=== PATIENT | male | born 1995 | race Caucasian/White ===

== ENCOUNTER 2019-08-02 19:29 | Inpatient (IN) | payer MEDICAID ==
[~2019-08-02] VITALS: Ht 172.7 cm; Wt 50.6 kg
[~2019-08-02 19:29] MED LIST: INSLISPI SC; INSUINJ37 SUBCUT
[2019-08-02] MEDS ORDERED: ONDANSETRON HCL 4 MG/2 ML VIAL IV ONE (20:00)
[2019-08-02] MEDS ORDERED: SODIUM CHLORIDE 0.9% 1,000 ML IV ONE ×3 (20:00→22:15)
[2019-08-02] MEDS ORDERED: MORPHINE SULFATE 4 MG/ML SYR/VIAL IV ONE (20:00)
[2019-08-02 20:05] LABS: Basophils # (auto) 0 10 ^3/uL (0-0.2); Basophils % (auto) 0.4 % (0.0-2.0); Eosinophils # (auto) 0 10 ^3/uL (0-0.8); Eosinophils % (auto) 0.1 % (0.0-7.0); Hemoglobin 16.8 g/dL (13.5-17.5); Lymphocytes # (auto) 1.6 10 ^3/uL (0.4-5.4); Lymphocytes % (auto) 16.2 % (10.0-50.0); Mean Corpuscular Hemoglobin 29.9 pg (28.0-32.0); Mean Corpuscular Volume 85.5 fL (80.0-100.0); Monocytes # (auto) 0.9 10 ^3/uL (0-1.3); Monocytes % (auto) 9.7 % (0.0-12.0); Neutrophils # (auto) 7.1 10 ^3/uL (1.6-8.6); Neutrophils % (auto) 73.6 % (37.0-80.0); Nucleated Red Blood Cells % 0.1 %; Platelet Count (auto) 401 10^3/uL (140-450); Red Blood Cells 5.61 10^6/uL (4.5-5.90); Red Cell Distribution Width 13.4 % (11.8-14.3); White Blood Cell 9.6 10^3/uL (4.4-10.8)
[2019-08-02 20:18] LABS: Albumin 4.7 g/dL (3.4-5.0); Calcium 9.4 mg/dL (8.5-10.1); Potassium 3.8 mmol/L (3.5-5.1)
[2019-08-02 20:27] LABS: BUN/Creatinine Ratio 9.9; Bilirubin, Total 1.1 mg/dL (0.2-1.0); Total Protein 8.9 g/dL (6.4-8.2)
[2019-08-02] MEDS ORDERED: PROMETHAZINE HCL 25 MG/ML 1ML IV ONE (21:15)
[2019-08-02] MEDS ORDERED: InsuLIN REG 1unit/0.01ml Soln (100units/ml) IV ONE (21:15)
[2019-08-02] MEDS ORDERED: DEXTROSE (50%) 50ML SYRG IV PRN (21:45)
[2019-08-02] MEDS ORDERED: NITROGLYCERIN 0.4 MG SL TAB SL PRN (22:15)
[2019-08-02] MEDS ORDERED: MORPHINE SULF INJ 2 MG/ML SYRINGE 1ML IV PRN (22:15)
[2019-08-02] MEDS ORDERED: PANTOPRAZOLE 40 MG/10 ML VIAL INJ IV ONE (22:15)
[2019-08-02] MEDS ORDERED: TEMAZEPAM 15 MG CAP PO PRN (22:15)
[2019-08-02] MEDS ORDERED: ACETAMINOPHEN 325 MG TAB PO PRN (22:15)
[2019-08-02 23:00] VITALS: BP 138/90
[2019-08-02] MEDS: ONDANSETRON HCL 4 MG/2 ML VIAL IV PRN (23:17)
[2019-08-03 00:30] VITALS: BP 138/90
[2019-08-03] MEDS: SODIUM CHLORIDE 0.9% 1,000 ML IV SCH ×3 (01:15→18:36)
[2019-08-03] MEDS: InsuLIN REG 1unit/0.01ml Soln (100units/ml) SC SCH ×6 (01:16→20:00)
[2019-08-03] MEDS: ACCU-CHEK COMFORT CURVE STRIP VI SCH ×6 (01:16→20:16)
[2019-08-03] MEDS: HYDROcodone-ACET 7.5/325MG TAB PO PRN ×2 (01:31→09:48)
[2019-08-03] MEDS: ONDANSETRON HCL 4 MG/2 ML VIAL IV PRN ×2 (03:35→09:48)
[2019-08-03 05:00] VITALS: BP 147/93
[2019-08-03] MEDS ORDERED: KETOROLAC TROMETH 15 mg/ml 1ML VL IV ONE (05:45)
[2019-08-03 05:57] LABS: Basophils # (auto) 0 10 ^3/uL (0-0.2); Basophils % (auto) 0.1 % (0.0-2.0); Eosinophils # (auto) 0 10 ^3/uL (0-0.8); Hemoglobin 14.3 g/dL (13.5-17.5); Lymphocytes # (auto) 1.9 10 ^3/uL (0.4-5.4); Lymphocytes % (auto) 18.6 % (10.0-50.0); Mean Corpuscular Hgb Conc. 34.1 g/dL (32.0-36.0); Monocytes # (auto) 1.1 10 ^3/uL (0-1.3); Monocytes % (auto) 10.6 % (0.0-12.0); Neutrophils % (auto) 70.7 % (37.0-80.0); Nucleated Red Blood Cells % 0.2 %; Platelet Count (auto) 354 10^3/uL (140-450); Red Blood Cells 4.95 10^6/uL (4.5-5.90); Red Cell Distribution Width 13.4 % (11.8-14.3)
[2019-08-03 06:16] LABS: BUN/Creatinine Ratio 9.7; Calcium 8.2 mg/dL (8.5-10.1); Potassium 3.2 mmol/L (3.5-5.1)
[2019-08-03] MEDS ORDERED: SODIUM CHLORIDE 0.9% 500 ML IV ONE (07:30)
[2019-08-03 09:00] VITALS: BP 143/88
[2019-08-03 09:25] LABS: Urine WBC None Seen /hpf (0 - 3)
[2019-08-03 09:40] LABS: Urine Bacteria NONE SEEN /hpf (None Seen); Urine Blood TRACE /uL (Negative); Urine Mucus FEW (None Seen); Urine Specific Gravity 1.014 (1.001-1.035); Urine Sperm PRESENT /hpf (None Seen)
[2019-08-03] MEDS: PANTOPRAZOLE 40 MG/10 ML VIAL INJ IV SCH (09:48)
[2019-08-03] MEDS ORDERED: INSULIN LANTUS (GLARGINE) 1 /0.01ml (100units/ml) SC SCH ×2 (11:15→22:00)
[2019-08-03 12:56] VITALS: BP 130/89
[2019-08-03] MEDS: MORPHINE SULF INJ 2 MG/ML SYRINGE 1ML IV PRN ×2 (13:55→20:16)
[2019-08-03] MEDS: PROMETHAZINE HCL 25 MG/ML 1ML IV PRN ×3 (13:55→22:30)
[2019-08-03 16:29] LABS: Calcium 7.7 mg/dL (8.5-10.1); Potassium 3.2 mmol/L (3.5-5.1)
[2019-08-03 16:31] LABS: BUN/Creatinine Ratio 8.8
[2019-08-03 17:00] VITALS: BP 133/77
[2019-08-03 22:00] VITALS: BP 150/85
[2019-08-04 01:04] LABS: BUN/Creatinine Ratio 7.1; Potassium 3.4 mmol/L (3.5-5.1)
[2019-08-04] MEDS: InsuLIN REG 1unit/0.01ml Soln (100units/ml) SC SCH (01:24)
[2019-08-04] MEDS: ACCU-CHEK COMFORT CURVE STRIP VI SCH ×16 (01:24→23:25)
[2019-08-04] MEDS: MORPHINE SULF INJ 2 MG/ML SYRINGE 1ML IV PRN ×4 (02:00→21:13)
[2019-08-04] MEDS ORDERED: SODIUM CHLORIDE 0.9% 2,000 ML IV ONE (03:45)
[2019-08-04] MEDS ORDERED: POTASSIUM CHL 20MEQ/100ML 100 ML IV ONE (03:45)
[2019-08-04] MEDS ORDERED: DEXTROSE (50%) 50ML SYRG IV PRN (04:15)
[2019-08-04] MEDS: InsuLIN R (HUMAN) 100 UNITS in SODIUM CHL 0.9% 99 ML IV SCH (04:24)
[2019-08-04] MEDS: PROMETHAZINE HCL 25 MG/ML 1ML IV PRN ×4 (04:35→20:29)
[2019-08-04 05:00] VITALS: BP 145/71
[2019-08-04] MEDS: SODIUM CHLORIDE 0.9% 1,000 ML IV SCH ×2 (05:38→15:13)
[2019-08-04 09:00] VITALS: BP 150/88
[2019-08-04 09:03] LABS: Basophils # (auto) 0 10 ^3/uL (0-0.2); Basophils % (auto) 0.3 % (0.0-2.0); Eosinophils # (auto) 0.1 10 ^3/uL (0-0.8); Eosinophils % (auto) 1.3 % (0.0-7.0); Hematocrit 41.3 % (41.0-53.0); Lymphocytes # (auto) 1.4 10 ^3/uL (0.4-5.4); Mean Corpuscular Hemoglobin 28.8 pg (28.0-32.0); Mean Corpuscular Volume 84.9 fL (80.0-100.0); Monocytes # (auto) 1.1 10 ^3/uL (0-1.3); Monocytes % (auto) 12.9 % (0.0-12.0); Neutrophils # (auto) 5.7 10 ^3/uL (1.6-8.6); Neutrophils % (auto) 68.5 % (37.0-80.0); Nucleated Red Blood Cells % 0.1 %; Platelet Count (auto) 333 10^3/uL (140-450); Red Blood Cells 4.87 10^6/uL (4.5-5.90); Red Cell Distribution Width 13.1 % (11.8-14.3); White Blood Cell 8.2 10^3/uL (4.4-10.8)
[2019-08-04 09:24] LABS: BUN/Creatinine Ratio 5.3; Calcium 7.4 mg/dL (8.5-10.1)
[2019-08-04] MEDS: PANTOPRAZOLE 40 MG/10 ML VIAL INJ IV SCH (10:36)
[2019-08-04] MEDS: SUCRALFATE 1 GM/10 ML ORAL SUSP PO SCH ×3 (11:30→22:00)
[2019-08-04 13:00] VITALS: BP 152/92
[2019-08-04 14:43] LABS: BUN/Creatinine Ratio 4.5; Calcium 7.6 mg/dL (8.5-10.1)
[2019-08-04 14:45] LABS: INR 1.23 (0.9-1.15); Partial Thromboplastin Time 27.1 sec (23.64-32.05)
[2019-08-04 16:40] VITALS: BP 126/81
[2019-08-04] MEDS: D5W/SOD CHLO 0.9% 1,000 ML IV SCH (17:35)
[2019-08-04 22:00] VITALS: BP 150/89
[2019-08-04] MEDS: PANTOPRAZOLE 40 MG TAB PO SCH (22:00)
[2019-08-05] VITALS (9 sets, daily range): BP systolic 128–150; BP diastolic 83–109
[2019-08-05] MEDS: ACCU-CHEK COMFORT CURVE STRIP VI SCH ×24 (00:20→23:14)
[2019-08-05 00:57] LABS: BUN/Creatinine Ratio 2.9; Calcium 7.8 mg/dL (8.5-10.1); Magnesium 1.7 mg/dL (1.6-2.6)
[2019-08-05 00:59] LABS: Potassium 2.6 mmol/L (3.5-5.1)
[2019-08-05] MEDS: PROMETHAZINE HCL 25 MG/ML 1ML IV PRN ×3 (01:45→17:58)
[2019-08-05] MEDS: SUCRALFATE 1 GM/10 ML ORAL SUSP PO SCH ×4 (01:53→22:14)
[2019-08-05] MEDS: MORPHINE SULF INJ 2 MG/ML SYRINGE 1ML IV PRN ×3 (03:40→20:42)
[2019-08-05] MEDS: D5W/SOD CHLO 0.9% 1,000 ML IV SCH ×2 (03:52→15:11)
[2019-08-05] MEDS: InsuLIN R (HUMAN) 100 UNITS in SODIUM CHL 0.9% 99 ML IV SCH ×2 (04:16→23:15)
[2019-08-05] MEDS ORDERED: POTASSIUM CHL 20MEQ/100ML 100 ML IV ONE ×2 (08:04→16:30)
[2019-08-05 09:08] LABS: Basophils # (auto) 0 10 ^3/uL (0-0.2); Basophils % (auto) 0.5 % (0.0-2.0); Eosinophils # (auto) 0.2 10 ^3/uL (0-0.8); Eosinophils % (auto) 2.5 % (0.0-7.0); Hematocrit 42.4 % (41.0-53.0); Hemoglobin 14.6 g/dL (13.5-17.5); Lymphocytes # (auto) 0.9 10 ^3/uL (0.4-5.4); Lymphocytes % (auto) 14.3 % (10.0-50.0); Mean Corpuscular Hgb Conc. 34.5 g/dL (32.0-36.0); Mean Corpuscular Volume 83.8 fL (80.0-100.0); Monocytes # (auto) 0.8 10 ^3/uL (0-1.3); Monocytes % (auto) 12.8 % (0.0-12.0); Neutrophils # (auto) 4.3 10 ^3/uL (1.6-8.6); Neutrophils % (auto) 69.9 % (37.0-80.0); Platelet Count (auto) 352 10^3/uL (140-450); Red Blood Cells 5.05 10^6/uL (4.5-5.90); Red Cell Distribution Width 13.5 % (11.8-14.3); White Blood Cell 6.2 10^3/uL (4.4-10.8)
[2019-08-05 09:22] LABS: INR 1.21 (0.9-1.15)
[2019-08-05 09:26] LABS: BUN/Creatinine Ratio 3.4; Calcium 7.8 mg/dL (8.5-10.1)
[2019-08-05 09:30] LABS: Potassium 2.7 mmol/L (3.5-5.1)
[2019-08-05] MEDS: PANTOPRAZOLE 40 MG TAB PO SCH (09:38)
[2019-08-05] MEDS: POTASSIUM CHL 20MEQ/100ML 100 ML IV SCH ×4 (10:08→15:41)
[2019-08-05] MEDS ORDERED: SODIUM CHLORIDE LOCK 10 ML ONE (13:00)
[2019-08-05] MEDS ORDERED: LIDOCAINE VISCOUS 2% 15ML UD ONE (13:00)
[2019-08-05] MEDS ORDERED: diphenhdrAMINE HCL 50 MG/1 ML VL ONE (13:01)
[2019-08-05] MEDS: fentaNYL CITRATE 100 MCG/2 ML VL ONE ×2 (13:08→13:11)
[2019-08-05] MEDS: MIDAZOLAM HCL 5 MG/ML-1ML VIAL ONE ×3 (13:08→13:13)
[2019-08-05 15:40] LABS: BUN/Creatinine Ratio 4.8; Calcium 8.1 mg/dL (8.5-10.1); Phosphorus 1.3 mg/dL (2.5-4.90)
[2019-08-05] MEDS ORDERED: POTASSIUM PHOSPHATE 22 MEQ in SODIUM CHL 0.9% 100 ML IV ONE (16:30)
[2019-08-05 18:58] LABS: Calcium 7.9 mg/dL (8.5-10.1); Phosphorus 1.5 mg/dL (2.5-4.90); Potassium 3.1 mmol/L (3.5-5.1)
[2019-08-05] MEDS: PANTOPRAZOLE 40 MG/10 ML VIAL INJ IV SCH (22:14)
[2019-08-05 22:42] LABS: BUN/Creatinine Ratio 4.4; Calcium 8.1 mg/dL (8.5-10.1); Phosphorus 1.5 mg/dL (2.5-4.90)
[2019-08-05] MEDS ORDERED: INSULIN LANTUS (GLARGINE) 1 /0.01ml (100units/ml) SC SCH (23:45)
[2019-08-06] VITALS (24 sets, daily range): BP systolic 111–187; BP diastolic 74–120
[2019-08-06] MEDS ORDERED: POTASSIUM EFFERVESENT TAB 25 MEQ GT ONE
[2019-08-06] MEDS ORDERED: DEXTROSE (50%) 50ML SYRG IV PRN
[2019-08-06] MEDS ORDERED: POTASSIUM EFFERVESENT TAB 25 MEQ PO ONE (04:00)
[2019-08-06] MEDS: ACCU-CHEK COMFORT CURVE STRIP VI SCH ×4 (04:07→11:49)
[2019-08-06 04:08] LABS: Basophils # (auto) 0 10 ^3/uL (0-0.2); Basophils % (auto) 0.5 % (0.0-2.0); Eosinophils # (auto) 0.4 10 ^3/uL (0-0.8); Eosinophils % (auto) 4.7 % (0.0-7.0); Hemoglobin 13.7 g/dL (13.5-17.5); Lymphocytes # (auto) 1.9 10 ^3/uL (0.4-5.4); Lymphocytes % (auto) 24.9 % (10.0-50.0); Mean Corpuscular Hemoglobin 28.6 pg (28.0-32.0); Mean Corpuscular Hgb Conc. 34.2 g/dL (32.0-36.0); Mean Corpuscular Volume 83.8 fL (80.0-100.0); Monocytes % (auto) 13.3 % (0.0-12.0); Neutrophils # (auto) 4.4 10 ^3/uL (1.6-8.6); Neutrophils % (auto) 56.6 % (37.0-80.0); Platelet Count (auto) 340 10^3/uL (140-450); Red Blood Cells 4.77 10^6/uL (4.5-5.90); Red Cell Distribution Width 13.5 % (11.8-14.3); White Blood Cell 7.8 10^3/uL (4.4-10.8)
[2019-08-06] MEDS: InsuLIN REG 1unit/0.01ml Soln (100units/ml) SC SCH ×4 (04:08→11:56)
[2019-08-06] MEDS: MORPHINE SULF INJ 2 MG/ML SYRINGE 1ML IV PRN (04:15)
[2019-08-06 04:22] LABS: Calcium 7.9 mg/dL (8.5-10.1); Magnesium 2.2 mg/dL (1.6-2.6); Potassium 3.2 mmol/L (3.5-5.1)
[2019-08-06 04:25] LABS: BUN/Creatinine Ratio 4.8
[2019-08-06] MEDS: SUCRALFATE 1 GM/10 ML ORAL SUSP PO SCH ×2 (06:40→11:48)
[2019-08-06] MEDS: PROMETHAZINE HCL 25 MG/ML 1ML IV PRN (09:13)
[2019-08-06] MEDS: PANTOPRAZOLE 40 MG/10 ML VIAL INJ IV SCH (10:28)
[2019-08-06] MEDS: SOD CHL 0.9%/ KCL 20MEQ 1,000 ML IV SCH ×2 (10:40)
[2019-08-06] MEDS ORDERED: POTASSIUM CHL 20 Meq TABLET PO ONE (11:15)
== END 2019-08-06 13:35 | disposition home or self-care (01) | DRG 241 ==
LOC: ER 19:29 → UNDOADMIN 19:30 → TELE-WESTW 19:30 → TELE 19:30 → ICU WEST 08-05 21:50
PROVIDERS: ADMIT Nurse Practitioner; ATTEND Hospitalist
PROC: 0DJ08ZZ Inspection of Upper Intestinal Tract, Via Natural or Artificial Opening Endoscopic (ICD-10-PCS; principal; 2019-08-05 13:08)
DX: K29.70 Gastritis, unspecified, without bleeding (principal); E10.10 Type 1 diabetes mellitus with ketoacidosis without coma; K31.84 Gastroparesis; E10.43 Type 1 diabetes mellitus with diabetic autonomic (poly)neuropathy; E87.1 Hypo-osmolality and hyponatremia; E86.0 Dehydration; E87.6 Hypokalemia; K20.9 Esophagitis, unspecified; F12.90 Cannabis use, unspecified, uncomplicated; Z79.4 Long term (current) use of insulin; Z91.19 Patient's noncompliance with other medical treatment and regimen
CPT/HCPCS: 36415; 36600; 71045; 74176; 80048; 80053; 81001; 82010; 82150; 82805; 82962; 83690; 83735; 84100; 84484; 85025; 85610; 85730; 87081; 96361; 96374; 96375; C9113; G0378; J1815; J2250; J2405; J3480; J7042

== ENCOUNTER 2019-09-16 11:06 | Emergency (ER) | payer MEDICAID ==
[~2019-09-16] VITALS: Ht 177.8 cm; Wt 56.7 kg
[2019-09-16] MEDS ORDERED: PANTOPRAZOLE 40 MG/10 ML VIAL INJ IV STA (11:21)
[2019-09-16] MEDS ORDERED: SODIUM CHLORIDE 0.9% 1,000 ML IVB ONE (11:21)
[2019-09-16] MEDS ORDERED: PROCHLORPERAZINE EDISYLATE 5 MG/ML 2ML VIAL IV ONE (11:30)
[2019-09-16] MEDS ORDERED: MORPHINE SULFATE 4 MG/ML SYR/VIAL IV ONE (11:30)
[2019-09-16 12:07] LABS: Basophils # (auto) 0 10 ^3/uL (0-0.2); Basophils % (auto) 0.4 % (0.0-2.0); Eosinophils # (auto) 0 10 ^3/uL (0-0.8); Eosinophils % (auto) 0.4 % (0.0-7.0); Hematocrit 42.3 % (41.0-53.0); Hemoglobin 14.3 g/dL (13.5-17.5); Lymphocytes # (auto) 1.3 10 ^3/uL (0.4-5.4); Lymphocytes % (auto) 19.3 % (10.0-50.0); Mean Corpuscular Hemoglobin 28.5 pg (28.0-32.0); Mean Corpuscular Hgb Conc. 33.9 g/dL (32.0-36.0); Mean Corpuscular Volume 84.1 fL (80.0-100.0); Monocytes # (auto) 0.4 10 ^3/uL (0-1.3); Monocytes % (auto) 5.9 % (0.0-12.0); Neutrophils # (auto) 4.9 10 ^3/uL (1.6-8.6); Nucleated Red Blood Cells % 0.1 %; Platelet Count (auto) 277 10^3/uL (140-450); Red Blood Cells 5.03 10^6/uL (4.5-5.90); Red Cell Distribution Width 13.4 % (11.8-14.3); White Blood Cell 6.7 10^3/uL (4.4-10.8)
[2019-09-16 12:44] LABS: Potassium 3.7 mmol/L (3.5-5.1)
[2019-09-16 12:48] LABS: BUN/Creatinine Ratio 12.9; Calcium 9.2 mg/dL (8.5-10.1)
[2019-09-16 12:50] LABS: Bilirubin, Total 0.5 mg/dL (0.2-1.0); Total Protein 7.1 g/dL (6.4-8.2)
[2019-09-16 13:16] VITALS: BP 130/95
[2019-09-16 13:30] LABS: Urine Bacteria FEW /hpf (None Seen); Urine Blood TRACE /uL (Negative); Urine WBC 1 /hpf (0 - 3)
[2019-09-16 13:44] LABS: Alcohol, Urine < 3.0 mg/dL (0-10); Amphetamine Screen, Urine NEGATIVE (NEGATIVE); Barbiturate Scree,Urine NEGATIVE (NEGATIVE); Benzodiazephine Screen, Urine NEGATIVE (NEGATIVE); Cannabinoid Screen, Urine POSITIVE (NEGATIVE); Cocaine Screen, Urine NEGATIVE (NEGATIVE); Opiate Scree,Urine POSITIVE (NEGATIVE); Phencyclidine Screen, Urine NEGATIVE (NEGATIVE)
== END 2019-09-16 14:53 | disposition home or self-care (01) ==
LOC: ER 11:06
DX: F12.188 Cannabis abuse with other cannabis-induced disorder (principal); R19.7 Diarrhea, unspecified; R10.13 Epigastric pain; E11.9 Type 2 diabetes mellitus without complications
CPT/HCPCS: 36415; 80053; 80307; 81001; 82010; 82962; 83690; 85025; 96361; 96374; 96375; 99284; C9113; J0780; J2270

== ENCOUNTER 2020-01-19 14:16 | Inpatient (IN) | payer MEDICAID ==
[~2020-01-19] VITALS: Ht 177.8 cm; Wt 60.0 kg
[2020-01-19 15:43] LABS: Basophils # (auto) 0 10 ^3/uL (0-0.2); Basophils % (auto) 0.4 % (0.0-2.0); Eosinophils # (auto) 0 10 ^3/uL (0-0.8); Eosinophils % (auto) 0.1 % (0.0-7.0); Hematocrit 38.8 % (41.0-53.0); Hemoglobin 12.7 g/dL (13.5-17.5); Lymphocytes # (auto) 0.8 10 ^3/uL (0.4-5.4); Lymphocytes % (auto) 9.8 % (10.0-50.0); Mean Corpuscular Hemoglobin 28.4 pg (28.0-32.0); Mean Corpuscular Hgb Conc. 32.6 g/dL (32.0-36.0); Mean Corpuscular Volume 86.9 fL (80.0-100.0); Monocytes # (auto) 0.5 10 ^3/uL (0-1.3); Monocytes % (auto) 6.1 % (0.0-12.0); Neutrophils # (auto) 6.7 10 ^3/uL (1.6-8.6); Neutrophils % (auto) 83.6 % (37.0-80.0); Nucleated Red Blood Cells % 0.1 %; Platelet Count (auto) 317 10^3/uL (140-450); Red Blood Cells 4.47 10^6/uL (4.5-5.90); Red Cell Distribution Width 13.8 % (11.8-14.3)
[2020-01-19 15:56] LABS: Albumin 3.9 g/dL (3.4-5.0); Calcium 8.9 mg/dL (8.5-10.1); Potassium 3.6 mmol/L (3.5-5.1)
[2020-01-19 15:59] LABS: BUN/Creatinine Ratio 18.2; Bilirubin, Total 0.5 mg/dL (0.2-1.0)
[2020-01-19 16:54] LABS: Urine Bacteria NONE SEEN /hpf (None Seen); Urine Blood Negative /uL (Negative); Urine Mucus FEW (None Seen); Urine Specific Gravity 1.017 (1.001-1.035); Urine WBC 2 /hpf (0 - 3)
[2020-01-19] MEDS ORDERED: MORPHINE SULFATE 4 MG/ML SYR/VIAL IV ONE (18:45)
[2020-01-19] MEDS ORDERED: ONDANSETRON HCL 4 MG/2 ML VIAL IV ONE ×2 (18:45→20:45)
[2020-01-19] MEDS ORDERED: SODIUM CHLORIDE 0.9% 1,000 ML IV ONE ×3 (18:45→23:00)
[2020-01-19] MEDS ORDERED: PANTOPRAZOLE 40 MG/10 ML VIAL INJ IV ONE (19:00)
[2020-01-19 19:56] LABS: Alcohol, Urine < 3.0 mg/dL (0-10); Amphetamine Screen, Urine NEGATIVE (NEGATIVE); Barbiturate Scree,Urine NEGATIVE (NEGATIVE); Benzodiazephine Screen, Urine NEGATIVE (NEGATIVE); Cannabinoid Screen, Urine POSITIVE (NEGATIVE); Cocaine Screen, Urine NEGATIVE (NEGATIVE)
[2020-01-19 20:03] LABS: Opiate Scree,Urine NEGATIVE (NEGATIVE); Phencyclidine Screen, Urine NEGATIVE (NEGATIVE)
[2020-01-19] MEDS ORDERED: PROCHLORPERAZINE EDISYLATE 5 MG/ML 2ML VIAL IV ONE (20:45)
[2020-01-19] MEDS ORDERED: IOHEXOL 300 MG/ML 100ML BOTTLE IJ ONE (20:57)
[2020-01-19 23:05] LABS: Amylase 55 U/L (25-115); Lipase 45 U/L (73-393)
[2020-01-19 23:19] LABS: INR 1.04 (0.9-1.15); Partial Thromboplastin Time 24.4 sec (23.0-31.2)
[2020-01-19] MEDS ORDERED: PROMETHAZINE HCL 25 MG/ML 1ML IV ONE (23:45)
[2020-01-20] VITALS (7 sets, daily range): BP systolic 123–150; BP diastolic 78–109
[2020-01-20] MEDS ORDERED: MORPHINE SULF INJ 2 MG/ML SYRINGE 1ML IV ONE
[2020-01-20] MEDS ORDERED: metroNIDAZOLE 500MG/100ML 100 ML IV ONE
[2020-01-20] MEDS ORDERED: CIPROFLOXACIN 400MG/200ML 200 ML IV ONE
--- NOTE | 2020-01-20 | NUR ---
Refused Carafate 1 gram liquid and tablet Protonix 40mg.,said that he cant get it down, though explained that Zofran 4mg. i.v.p, given earlier, still refused.
[2020-01-20] MEDS ORDERED: SODIUM CHLORIDE 0.9% 1,000 ML IV SCH (01:00)
[2020-01-20] MEDS ORDERED: DEXTROSE (50%) 50ML SYRG IV PRN (01:15)
[2020-01-20 01:51] LABS: Hematocrit 35.6 % (41.0-53.0); Hemoglobin 11.9 g/dL (13.5-17.5)
[2020-01-20] MEDS: InsuLIN REG 1unit/0.01ml Soln (100units/ml) SC SCH ×4 (06:00→23:59)
[2020-01-20] MEDS: ACCU-CHEK COMFORT CURVE STRIP VI SCH ×4 (06:23→23:59)
[2020-01-20] MEDS: MORPHINE SULFATE 4 MG/ML SYR/VIAL IV PRN ×3 (06:23→22:22)
[2020-01-20] MEDS ORDERED: cefTRIAXone 1GM/50ML D5W 50 ML IV SCH (09:00)
[2020-01-20] MEDS ORDERED: PANTOPRAZOLE 40 MG/10 ML VIAL INJ IV SCH (10:00)
[2020-01-20] MEDS ORDERED: LIDOCAINE VISCOUS 2% 15ML UD ONE (10:33)
[2020-01-20] MEDS ORDERED: MIDAZOLAM HCL 5 MG/ML-1ML VIAL ONE (10:33)
[2020-01-20] MEDS ORDERED: diphenhdrAMINE HCL 50 MG/1 ML VL ONE (10:34)
[2020-01-20] MEDS ORDERED: fentaNYL CITRATE 100 MCG/2 ML VL ONE (10:34)
[2020-01-20] MEDS: POLYETHYLENE GLYCOL 17 GM PWDR PO ONE ×2 (11:00→15:15)
[2020-01-20] MEDS ORDERED: ONDANSETRON HCL 4 MG/2 ML VIAL ONE (12:20)
--- NOTE | 2020-01-20 12:30 | NUR ---
Per Dr. Fe Moise, may not do the In-house COVID test since patient is already undergoing EGD and COVID ELEUTERIO is negative. Patient is for discharge today after EGD.
[2020-01-20] MEDS ORDERED: ONDA-144 PO (12:48)
[2020-01-20] MEDS ORDERED: SUCR1SUS10 PO (12:48)
[2020-01-20] MEDS ORDERED: INSLISPI SC (12:48)
[2020-01-20] MEDS ORDERED: INSUINJ37 SC (12:48)
[2020-01-20] MEDS ORDERED: PANT40T PO (12:48)
[2020-01-20 14:16] LABS: Potassium 3.2 mmol/L (3.5-5.1)
[2020-01-20 14:17] LABS: Calcium 7.9 mg/dL (8.5-10.1)
--- NOTE | 2020-01-20 14:35 | NUR ---
BMP results in, paged Dr. Hernando Moise for Na-135, K-3.2, Ca-7.9. Waiting for call back.
[2020-01-20] MEDS: POTASSIUM EFFERVESENT TAB 25 MEQ PO ONE ×2 (15:00→15:14)
--- NOTE | 2020-01-20 16:20 | NUR ---
Assessment Patient is a 24-year-old male who is alert and oriented. Patient refused to speak to social service. Per social service consult for home health safety evaluation, IE/ [facility] and for [facility] to refer patient to tertiary [facility]. Faxed clinical information to [facility]. Per Sari with [facility] [phone] patient has been accepted and service to start within 24-48hrs upon d/c day. [facility] will refer patient to [facility] if patient meets criteria. Obtain authorization from [facility] for [facility] [id number].
[2020-01-20] MEDS: ONDANSETRON HCL 4 MG/2 ML VIAL IV PRN ×2 (16:35→20:05)
--- NOTE | 2020-01-20 16:40 | NUR ---
Patient had 2 episodes of vomiting in the 2 hours, Zofran IV given, refused to take Miralax PO. Potassium as ordered by MD given. Patient is cleared for discharge but adamantly refused to go home. Paged Dr. Fe Moise and returned call, discussed with him about this. Per MD the decision is to send him home still. We will talk to the patient again together with Bear PATRICKrelief charge nurse.
[2020-01-20] MEDS: SUCRALFATE 1 GM/10 ML ORAL SUSP PO SCH ×3 (17:00→22:00)
--- NOTE | 2020-01-20 17:42 | NUR ---
Received orders from Dr. Fe Moise. D/C held for today.
[2020-01-20] MEDS: POTASSIUM CHL 20MEQ/100ML 100 ML IV SCH ×2 (18:06→22:06)
--- NOTE | 2020-01-20 18:08 | NUR ---
Accucheck-202mg/dl, Sliding scale insulin of 3 units not given, patient is vomiting unable to eat. Will continue to monitor.
[2020-01-20] MEDS: PANTOPRAZOLE 40 MG TAB PO SCH ×2 (21:50→22:00)
[2020-01-21] MEDS: ONDANSETRON HCL 4 MG/2 ML VIAL IV PRN ×3 (04:22→13:41)
[2020-01-21 05:00] VITALS: BP 140/95
[2020-01-21] MEDS: ACCU-CHEK COMFORT CURVE STRIP VI SCH ×2 (06:05→12:00)
[2020-01-21] MEDS: InsuLIN REG 1unit/0.01ml Soln (100units/ml) SC SCH ×2 (06:06→12:38)
[2020-01-21] MEDS: SUCRALFATE 1 GM/10 ML ORAL SUSP PO SCH ×2 (06:15→11:30)
--- NOTE | 2020-01-21 07:38 | NUR ---
Report given to Edison Kan, patient is resting no distress.
[2020-01-21 08:00] VITALS: BP 120/81
[2020-01-21 08:21] LABS: Basophils # (auto) 0 10 ^3/uL (0-0.2); Basophils % (auto) 0.2 % (0.0-2.0); Eosinophils # (auto) 0 10 ^3/uL (0-0.8); Eosinophils % (auto) 0.1 % (0.0-7.0); Hematocrit 40.6 % (41.0-53.0); Hemoglobin 13.7 g/dL (13.5-17.5); Lymphocytes # (auto) 1.1 10 ^3/uL (0.4-5.4); Mean Corpuscular Hemoglobin 28.5 pg (28.0-32.0); Mean Corpuscular Hgb Conc. 33.7 g/dL (32.0-36.0); Mean Corpuscular Volume 84.5 fL (80.0-100.0); Monocytes # (auto) 0.6 10 ^3/uL (0-1.3); Monocytes % (auto) 8.8 % (0.0-12.0); Neutrophils # (auto) 5.3 10 ^3/uL (1.6-8.6); Neutrophils % (auto) 74.9 % (37.0-80.0); Platelet Count (auto) 320 10^3/uL (140-450); Red Blood Cells 4.81 10^6/uL (4.5-5.90); Red Cell Distribution Width 13.4 % (11.8-14.3)
[2020-01-21 08:37] VITALS: BP 120/81
[2020-01-21 08:43] LABS: Albumin 3.6 g/dL (3.4-5.0); Calcium 8.9 mg/dL (8.5-10.1); Potassium 3.6 mmol/L (3.5-5.1)
[2020-01-21 08:45] LABS: BUN/Creatinine Ratio 14.3; Bilirubin, Total 0.8 mg/dL (0.2-1.0); Total Protein 6.9 g/dL (6.4-8.2)
[2020-01-21] MEDS: MORPHINE SULFATE 4 MG/ML SYR/VIAL IV PRN ×2 (08:52→13:41)
--- NOTE | 2020-01-21 08:52 | NUR ---
medicated for 7/10 abdominal and back pain. Nausea med also given at this time
[2020-01-21] MEDS: PANTOPRAZOLE 40 MG TAB PO SCH (09:14)
[2020-01-21 12:51] VITALS: BP 134/86
--- NOTE | 2020-01-21 13:41 | NUR ---
MEDICATED FOR 10/07 ABDOMINAL PAIN
--- NOTE | 2020-01-21 14:25 | NUR ---
Dr. Fe Moise made aware that patient is still having nausea and 2 vomiting episode today.
--- NOTE | 2020-01-21 14:40 | NUR ---
Dr. Fe Moise along with furniture refinisher, Bear present at bedside. MD discussed discharge plans, concerns addressed. Patient verbalized understanding.
[2020-01-21 17:10] VITALS: BP 141/86
--- NOTE | 2020-01-21 17:22 | NUR ---
Patient discharged home per MD's order. Patient verbalized understanding of discharge summary and follow up instructions. IV discontinued. Patient alert and oriented x4 at discharge time.
== END 2020-01-21 17:40 | disposition home health service (06) | DRG 241 ==
LOC: EDBD 14:16 → ER 14:16 → OVERFLOW 14:17 → WEST WING 01-20 01:44
PROVIDERS: ADMIT Nurse Practitioner; ATTEND Hospitalist
PROC: 0DB78ZX Excision of Stomach, Pylorus, Via Natural or Artificial Opening Endoscopic, Diagnostic (ICD-10-PCS; principal; 2020-01-20 12:15)
DX: K29.71 Gastritis, unspecified, with bleeding (principal); E10.65 Type 1 diabetes mellitus with hyperglycemia; Z20.828 Contact with and (suspected) exposure to other viral communicable diseases; K52.9 Noninfective gastroenteritis and colitis, unspecified; K20.91 Esophagitis, unspecified with bleeding; D64.9 Anemia, unspecified; K59.00 Constipation, unspecified; F12.988 Cannabis use, unspecified with other cannabis-induced disorder; Z91.19 Patient's noncompliance with other medical treatment and regimen; K42.9 Umbilical hernia without obstruction or gangrene; K80.20 Calculus of gallbladder without cholecystitis without obstruction; Z79.4 Long term (current) use of insulin; Z83.3 Family history of diabetes mellitus
CPT/HCPCS: 36415; 43239; 71260; 74176; 74177; 76705; 80048; 80053; 80307; 81001; 82010; 82040; 82150; 82962; 83690; 85014; 85018; 85025; 85610; 85730; 86850; 86900; 86901; 87081; 87426; C9113; G0378; J0696; J1815; J2250; J2405; J3480; J3490

== ENCOUNTER 2020-02-10 15:55 | Inpatient (IN) | payer MEDICAID ==
[~2020-02-10] VITALS: Ht 177.8 cm; Wt 57.7 kg
[~2020-02-10 15:55] MED LIST changes: +INSUINJ37 SC; +ONDA-144 PO; +PANT40T PO; +SUCR1SUS10 PO
[2020-02-10] MEDS ORDERED: SODIUM CHLORIDE 0.9% 1,000 ML IVB ONE (16:15)
[2020-02-10] MEDS ORDERED: MORPHINE SULFATE 4 MG/ML SYR/VIAL IV ONE (16:15)
[2020-02-10] MEDS ORDERED: ONDANSETRON HCL 4 MG/2 ML VIAL IV ONE (16:15)
[2020-02-10 16:31] LABS: Basophils # (auto) 0 10 ^3/uL (0-0.2); Basophils % (auto) 0.2 % (0.0-2.0); Eosinophils # (auto) 0 10 ^3/uL (0-0.8); Hemoglobin 13.4 g/dL (13.5-17.5); Lymphocytes # (auto) 0.7 10 ^3/uL (0.4-5.4); Lymphocytes % (auto) 8.3 % (10.0-50.0); Mean Corpuscular Hemoglobin 28.5 pg (28.0-32.0); Mean Corpuscular Hgb Conc. 33.4 g/dL (32.0-36.0); Mean Corpuscular Volume 85.4 fL (80.0-100.0); Monocytes # (auto) 0.3 10 ^3/uL (0-1.3); Monocytes % (auto) 3.2 % (0.0-12.0); Neutrophils # (auto) 7.5 10 ^3/uL (1.6-8.6); Neutrophils % (auto) 88.3 % (37.0-80.0); Platelet Count (auto) 278 10^3/uL (140-450); Red Blood Cells 4.68 10^6/uL (4.5-5.90); Red Cell Distribution Width 13.8 % (11.8-14.3); White Blood Cell 8.5 10^3/uL (4.4-10.8)
[2020-02-10 16:43] LABS: Albumin 3.8 g/dL (3.4-5.0); BUN/Creatinine Ratio 8.5; Calcium 8.2 mg/dL (8.5-10.1); Potassium 3.6 mmol/L (3.5-5.1)
[2020-02-10 16:46] LABS: Bilirubin, Total 0.5 mg/dL (0.2-1.0); Total Protein 7.4 g/dL (6.4-8.2)
[2020-02-10 17:15] LABS: Lactic Acid w/Reflex 2.8 mmol/L (0.4-2.0)
[2020-02-10 17:59] LABS: Urine Bacteria NONE SEEN /hpf (None Seen); Urine Blood TRACE /uL (Negative); Urine Mucus FEW (None Seen); Urine Specific Gravity 1.009 (1.001-1.035); Urine WBC 1 /hpf (0 - 3)
[2020-02-10] MEDS ORDERED: DEXTROSE (50%) 50ML SYRG IV PRN (18:00)
[2020-02-10] MEDS ORDERED: TEMAZEPAM 15 MG CAP PO PRN (18:00)
[2020-02-10] MEDS ORDERED: PANTOPRAZOLE 40 MG/10 ML VIAL INJ IV ONE ×2 (18:00)
[2020-02-10] MEDS ORDERED: ACETAMINOPHEN 500 MG TAB PO PRN (18:00)
[2020-02-10] MEDS ORDERED: MORPHINE SULF INJ 2 MG/ML SYRINGE 1ML IV PRN (18:00)
[2020-02-10] MEDS ORDERED: SODIUM CHLORIDE 0.9% 1,000 ML IV ONE ×2 (18:00)
[2020-02-10] MEDS ORDERED: NITROGLYCERIN 0.4 MG SL TAB SL PRN (18:00)
[2020-02-10] MEDS ORDERED: LORazepam 2MG/ML-1ML VIAL IV PRN (18:00)
[2020-02-10] MEDS ORDERED: traMADol HCL 50 MG TAB PO PRN (18:00)
[2020-02-10] MEDS ORDERED: PROMETHAZINE HCL 25 MG/ML 1ML IV ONE (18:00)
[2020-02-10 18:35] LABS: Amylase 52 U/L (25-115); Lipase 55 U/L (73-393)
[2020-02-10] MEDS: MORPHINE SULF INJ 2 MG/ML SYRINGE 1ML IV PRN (19:42)
[2020-02-10] MEDS: PROMETHAZINE HCL 25 MG/ML 1ML IV PRN (20:00)
--- NOTE | 2020-02-10 20:20 | NUR ---
PATIENT ARRIVED FROM THE EMERGENCY DEPARTMENT VIA WHEELCHAIR. HE WAS ABLE TO AMBULATE TO BED INDEPENDENTLY. HE COMPLAINS OF ABDOMINAL PAIN ACCOMPANIED BY NAUSEA AND VOMITING. HE IS ON ROOM AIR WITH NO COMPLAINTS OF SHORTNESS OF BREATH. BED IS LOCKED IN LOWEST POSITION WITH SIDE RAILS UP X2. ALL QUESTIONS ANSWERED. WILL CONTINUE TO MONITOR.
[2020-02-10 20:30] VITALS: BP 163/129
[2020-02-10 21:01] LABS: Hematocrit 35.4 % (41.0-53.0)
[2020-02-10] MEDS: ACCU-CHEK COMFORT CURVE STRIP VI SCH ×2 (21:10→23:55)
[2020-02-10] MEDS: SODIUM CHLORIDE 0.9% 1,000 ML IV SCH (21:10)
[2020-02-10 21:25] LABS: Alcohol, Urine < 3.0 mg/dL (0-10); Amphetamine Screen, Urine NEGATIVE (NEGATIVE); Barbiturate Scree,Urine NEGATIVE (NEGATIVE); Benzodiazephine Screen, Urine NEGATIVE (NEGATIVE); Cocaine Screen, Urine NEGATIVE (NEGATIVE); Opiate Scree,Urine NEGATIVE (NEGATIVE); Phencyclidine Screen, Urine NEGATIVE (NEGATIVE)
[2020-02-10] MEDS: LABETALOL HCL 5 MG/ML 4ML SYRINGE IV PRN (21:25)
[2020-02-10 21:33] LABS: Cannabinoid Screen, Urine POSITIVE (NEGATIVE)
[2020-02-11 00:49] LABS: Hematocrit 34.2 % (41.0-53.0); Hemoglobin 11.5 g/dL (13.5-17.5)
[2020-02-11] MEDS: MORPHINE SULF INJ 2 MG/ML SYRINGE 1ML IV PRN ×2 (02:42→08:27)
[2020-02-11] MEDS: PROMETHAZINE HCL 25 MG/ML 1ML IV PRN ×4 (02:42→20:30)
[2020-02-11] MEDS: ACCU-CHEK COMFORT CURVE STRIP VI SCH ×5 (04:18→20:29)
[2020-02-11] MEDS: SODIUM CHLORIDE 0.9% 1,000 ML IV SCH ×4 (04:18→20:40)
[2020-02-11] MEDS: InsuLIN REG 1unit/0.01ml Soln (100units/ml) SC SCH ×5 (04:49→20:29)
[2020-02-11 05:00] VITALS: BP 162/110
[2020-02-11 07:06] LABS: Basophils # (auto) 0 10 ^3/uL (0-0.2); Basophils % (auto) 0.2 % (0.0-2.0); Eosinophils # (auto) 0 10 ^3/uL (0-0.8); Hematocrit 34.9 % (41.0-53.0); Hemoglobin 11.8 g/dL (13.5-17.5); Lymphocytes # (auto) 1.1 10 ^3/uL (0.4-5.4); Lymphocytes % (auto) 12.3 % (10.0-50.0); Mean Corpuscular Hemoglobin 28.9 pg (28.0-32.0); Mean Corpuscular Hgb Conc. 33.7 g/dL (32.0-36.0); Mean Corpuscular Volume 85.8 fL (80.0-100.0); Monocytes # (auto) 0.7 10 ^3/uL (0-1.3); Monocytes % (auto) 8.1 % (0.0-12.0); Neutrophils # (auto) 7.2 10 ^3/uL (1.6-8.6); Neutrophils % (auto) 79.4 % (37.0-80.0); Platelet Count (auto) 247 10^3/uL (140-450); Red Blood Cells 4.07 10^6/uL (4.5-5.90); Red Cell Distribution Width 13.8 % (11.8-14.3); White Blood Cell 9.1 10^3/uL (4.4-10.8)
[2020-02-11 07:29] LABS: Albumin 3.1 g/dL (3.4-5.0); Calcium 8.2 mg/dL (8.5-10.1); Potassium 3.1 mmol/L (3.5-5.1)
[2020-02-11 07:33] LABS: BUN/Creatinine Ratio 7.8; Bilirubin, Total 0.4 mg/dL (0.2-1.0)
--- NOTE | 2020-02-11 07:50 | NUR ---
Opening Shift Note Assumed care of patient, awake, alert and oriented x 4. Respirations are even and non labored on room air. Bed is in the lowest and locked position with side rails up x 2 and call light within reach. Patient reported epigastric pain /. Medicated per order. Instructed on POC and to call for assist PRN, will continue to monitor for changes Q1hr and PRN.
[2020-02-11] MEDS ORDERED: InsuLIN REG 1unit/0.01ml Soln (100units/ml) SC SCH (08:00)
[2020-02-11 09:12] VITALS: BP 137/87
[2020-02-11] MEDS ORDERED: PANT40T PO (10:30)
[2020-02-11] MEDS ORDERED: METO-517 PO (10:30)
[2020-02-11] MEDS ORDERED: PROM25TA5 PO (10:30)
[2020-02-11] MEDS ORDERED: ONDA-144 PO (10:30)
[2020-02-11] MEDS: METOCLOPRAMIDE HCL 10 MG TAB PO SCH ×2 (11:30→17:00)
[2020-02-11] MEDS: POTASSIUM CHL 20MEQ/100ML 100 ML IV SCH ×2 (11:37→14:03)
[2020-02-11] MEDS: PANTOPRAZOLE 40 MG/10 ML VIAL INJ IV SCH (11:37)
--- NOTE | 2020-02-11 11:42 | NUR ---
Dr. Moise at bedside Reviewed POC and answered all questions.
[2020-02-11 12:36] VITALS: BP 140/100
--- NOTE | 2020-02-11 13:22 | NUR ---
Dr. Anne at bedside Spoke to the patient, answered all questions and stated that the patient will remain on NS for hydration.
--- NOTE | 2020-02-11 16:35 | NUR ---
Assessment Patient is a 24-year-old male who is alert and oriented. Prior to admission mira lived home with family and functioned independently. Patient will return home to his prior living arrangements post discharge and family will transport him home. Patient can care for his own ADL's. Per social service consult for home health safety evaluation. Patient is on service with [facility] and wants to continue service with agency. order faxed to [facility] and [facility]. Per Sari with [facility] patient has been accepted and service to start within 24-48hrs upon d/c day. Obtain authorization from [facility] for [employer] [id number]. Addendum: 02/11/20 at 1638 by ZI OLIVA Amended: Links added.
--- NOTE | 2020-02-11 17:00 | NUR ---
Medication refused Patient refused scheduled reglan. He is having persistent nausea and vomiting and won't be able to keep a PO medication down.
[2020-02-11 17:04] VITALS: BP 154/103
--- NOTE | 2020-02-11 17:30 | NUR ---
PRN Labetalol given for B/P 154/103
[2020-02-11] MEDS: LABETALOL HCL 5 MG/ML 4ML SYRINGE IV PRN (17:33)
[2020-02-11 22:00] VITALS: BP 132/69
[2020-02-12] MEDS: ACCU-CHEK COMFORT CURVE STRIP VI SCH ×6 (00:25→20:03)
[2020-02-12] MEDS: InsuLIN REG 1unit/0.01ml Soln (100units/ml) SC SCH ×7 (00:30→23:59)
[2020-02-12] MEDS: SODIUM CHLORIDE 0.9% 1,000 ML IV SCH ×4 (03:20→22:48)
[2020-02-12 05:00] VITALS: BP 145/88
[2020-02-12] MEDS: METOCLOPRAMIDE HCL 10 MG TAB PO SCH ×3 (06:54→17:00)
--- NOTE | 2020-02-12 07:30 | NUR ---
Opening Shift Note Assumed care of patient, awake and alert. Respirations are even and non labored on room air. No S/S of distress/SOB or pain. Bed is in the lowest and locked position with side rails up x 2 and call light within reach. Instructed on POC and to call for assist PRN, will continue to monitor for changes Q1hr and PRN.
--- NOTE | 2020-02-12 08:20 | NUR ---
IV insertion Patient called to report that his IV had came out. Catheter was intact, applied pressure dressing to the site. Patient tolerated well. New IV access obtained, via clean sterile technique by inserting 22 gauge catheter at left wrist after 1 attempt. IV secured properly. No trauma to site. Patient tolerated well.
[2020-02-12 09:00] VITALS: BP 148/85
[2020-02-12] MEDS: PANTOPRAZOLE 40 MG/10 ML VIAL INJ IV SCH (09:22)
[2020-02-12] MEDS ORDERED: PROMETHAZINE HCL 25 MG/ML 1ML IM PRN (12:15)
[2020-02-12 13:08] VITALS: BP 151/102
[2020-02-12] MEDS ORDERED: PROMETHAZINE HCL 25 MG/ML 1ML IM ONE (14:00)
[2020-02-12] MEDS ORDERED: SODIUM CHLORIDE 0.9% 2,000 ML IV ONE (14:30)
[2020-02-12] MEDS: METOPROLOL TARTRATE 25 MG TAB PO SCH ×2 (14:50→21:35)
[2020-02-12] MEDS: LABETALOL HCL 5 MG/ML 4ML SYRINGE IV PRN ×2 (16:14→22:59)
--- NOTE | 2020-02-12 16:14 | NUR ---
PRN labetalol given For BP 155/101
[2020-02-12 16:51] VITALS: BP 152/84
--- NOTE | 2020-02-12 16:51 | NUR ---
Left message for Dr. Moise Patient reported taking Basaglar 20 units in the morning and at night for glucose control and Lisinopril for blood pressure. Called for orders.
[2020-02-12 17:03] LABS: BUN/Creatinine Ratio 15.2; Calcium 8.6 mg/dL (8.5-10.1); Potassium 3.2 mmol/L (3.5-5.1)
--- NOTE | 2020-02-12 17:04 | NUR ---
Return call from Dr. Moise New orders received.
[2020-02-12] MEDS ORDERED: hydrALAZINE HCL 20 MG/ML VL IV PRN (18:00)
[2020-02-12] MEDS: ONDANSETRON HCL 4 MG/2 ML VIAL IV SCH (18:03)
[2020-02-12] MEDS: INSULIN LANTUS (GLARGINE) 1 /0.01ml (100units/ml) SC SCH (20:27)
[2020-02-12 22:00] VITALS: BP 151/95
[2020-02-13] MEDS: ONDANSETRON HCL 4 MG/2 ML VIAL IV SCH ×3 (00:18→13:18)
[2020-02-13] MEDS: ACCU-CHEK COMFORT CURVE STRIP VI SCH ×6 (00:18→20:00)
[2020-02-13] MEDS: InsuLIN REG 1unit/0.01ml Soln (100units/ml) SC SCH ×5 (04:00→20:00)
[2020-02-13 05:00] VITALS: BP 152/89
[2020-02-13] MEDS: INSULIN LANTUS (GLARGINE) 1 /0.01ml (100units/ml) SC SCH ×2 (06:00→18:08)
[2020-02-13] MEDS: SODIUM CHLORIDE 0.9% 1,000 ML IV SCH ×3 (06:08→21:11)
[2020-02-13] MEDS: METOCLOPRAMIDE HCL 10 MG TAB PO SCH ×3 (06:52→16:59)
[2020-02-13 09:00] VITALS: BP 151/96
--- NOTE | 2020-02-13 09:45 | NUR ---
Call from Dr. Moise Gave update on patient status.
--- NOTE | 2020-02-13 09:51 | NUR ---
Call to Dr. Anne
--- NOTE | 2020-02-13 09:55 | NUR ---
Returned call from Dr. Anne Spoke to doctor about possible D/C.
[2020-02-13] MEDS: METOPROLOL TARTRATE 25 MG TAB PO SCH ×2 (10:00→22:00)
[2020-02-13] MEDS: PANTOPRAZOLE 40 MG/10 ML VIAL INJ IV SCH (10:05)
[2020-02-13] MEDS: LABETALOL HCL 5 MG/ML 4ML SYRINGE IV PRN ×2 (10:07→21:07)
[2020-02-13] MEDS ORDERED: POTASSIUM CHL 20MEQ/100ML 100 ML IV ONE (10:15)
[2020-02-13 13:00] VITALS: BP 143/86
--- NOTE | 2020-02-13 13:15 | NUR ---
Patient refused tele psych consult Patient stated, "I don't feel like talking to anyone."
--- NOTE | 2020-02-13 13:42 | NUR ---
Dr. Moise at bedside
[2020-02-13 17:00] VITALS: BP 150/86
[2020-02-13] MEDS: METOCLOPRAMIDE HCL 5MG/ml INJ 2ml VIAL IV SCH (17:00)
--- NOTE | 2020-02-13 17:58 | NUR ---
IV removal Patient called to report that his hand felt numb and he wanted the IV out. IV DC'd with clean sterile technique, catheter fully intact. Pressure dressing applied to site. Patient tolerated well.
--- NOTE | 2020-02-13 18:50 | NUR ---
Output emptied 1400ML light brown emesis for the shift.
--- NOTE | 2020-02-13 19:40 | NUR ---
Opening Shift Note Assumed care of patient, sleeping at this time. No S/S of distress/SOB or pain. Bed in safety and lowest position, call light within reach, will continue to monitor for changes Q1hr and PRN.
--- NOTE | 2020-02-13 20:30 | NUR ---
IV insertion IV access obtained, via clean sterile technique by inserting 22 gauge catheter at RFA after [1] attempt(s). IV secured properly. No trauma to site. Patient tolerated well. NOTE: []
--- NOTE | 2020-02-13 20:45 | NUR ---
Patient vomited light brown emesis, PRN nausea medicine given
[2020-02-13] MEDS: ONDANSETRON HCL 4 MG/2 ML VIAL IV PRN (21:02)
[2020-02-13 22:00] VITALS: BP 158/100
--- NOTE | 2020-02-14 | NUR ---
Blood sugar at this time is 66, gave orange juice and instructed to drink slowly, patient verbalized understanding
[2020-02-14] MEDS: ACCU-CHEK COMFORT CURVE STRIP VI SCH ×4 (00:14→12:00)
[2020-02-14] MEDS: SODIUM CHLORIDE 0.9% 1,000 ML IV SCH ×2 (02:00→08:40)
--- NOTE | 2020-02-14 02:14 | NUR ---
Rechecked blood sugar and its 94, will continue to monitor
[2020-02-14] MEDS: InsuLIN REG 1unit/0.01ml Soln (100units/ml) SC SCH ×4 (04:00→12:00)
[2020-02-14] MEDS: ONDANSETRON HCL 4 MG/2 ML VIAL IV PRN (04:08)
[2020-02-14 05:00] VITALS: BP 158/101
[2020-02-14] MEDS: LABETALOL HCL 5 MG/ML 4ML SYRINGE IV PRN (05:13)
[2020-02-14] MEDS: INSULIN LANTUS (GLARGINE) 1 /0.01ml (100units/ml) SC SCH (05:44)
[2020-02-14] MEDS: METOCLOPRAMIDE HCL 5MG/ml INJ 2ml VIAL IV SCH ×2 (06:41→11:13)
--- NOTE | 2020-02-14 07:25 | NUR ---
Opening Shift Note Assumed care of patient, awake, alert and oriented x 4. Respirations are even and non labored on room air. No S/S of distress/SOB or pain. Bed is in the lowest and locked position with side rails up x 2 and call light within reach. Patient stated that he feels better, that he was able to eat something and requested to take a shower. Patient drank half of the iced tea, ate half a yogurt and fruit from the breakfast tray with no nausea. He stated that he felt well enough to go home today. Blood glucose level is 115, no coverage needed. Disconnected patient from the IV and tele to perform morning ADLs. Instructed on POC and to call for assist PRN, will continue to monitor for changes Q1hr and PRN.
[2020-02-14 09:00] VITALS: BP 127/83
--- NOTE | 2020-02-14 09:54 | NUR ---
Called [facility] Left message for Dr. Anne to notify of patient condition.
--- NOTE | 2020-02-14 09:56 | NUR ---
Call to Brandin Moise To update on patient status. Message left.
--- NOTE | 2020-02-14 10:00 | NUR ---
Return call from Dr. Dayana Mackenzie agreed patient can go home today.
--- NOTE | 2020-02-14 10:09 | NUR ---
Return call from Dr. Moise Gave update and stated patient can go home, medications have been transmitted to the patients preferred pharmacy.
[2020-02-14] MEDS: PANTOPRAZOLE 40 MG/10 ML VIAL INJ IV SCH (11:12)
[2020-02-14] MEDS: METOPROLOL TARTRATE 25 MG TAB PO SCH (11:12)
[2020-02-14] MEDS ORDERED: MET25T PO (11:22)
[2020-02-14 12:23] VITALS: BP 153/103
[2020-02-14 13:00] VITALS: BP 153/103
--- NOTE | 2020-02-14 13:08 | NUR ---
Discharge instructions given as ordered. Encourage to follow up with PMD and GI doctor as instructed. Notified patient of prescription electronically sent to preferred pharmacy. All questions and concerns addressed. Patient verbalized understanding. IV removed with catheter intact, pressure dressing applied. Telemetry unit returned to ICU. Patient taken to vehicle via wheelchair with all personal belongings, accompanied by staff. No distress noted at time of departure.
== END 2020-02-14 13:08 | disposition home health service (06) | DRG 48 ==
LOC: ER 15:55 → TELE 15:56 → TELE-WESTW 20:30
PROVIDERS: ADMIT Internal Medicine; ATTEND Internal Medicine
DX: E10.43 Type 1 diabetes mellitus with diabetic autonomic (poly)neuropathy (principal); R11.2 Nausea with vomiting, unspecified; K31.84 Gastroparesis; E86.0 Dehydration; I16.1 Hypertensive emergency; F12.10 Cannabis abuse, uncomplicated; I10 Essential (primary) hypertension; E87.6 Hypokalemia; Z79.4 Long term (current) use of insulin; Z83.3 Family history of diabetes mellitus; Z91.19 Patient's noncompliance with other medical treatment and regimen; Z79.899 Other long term (current) drug therapy; K29.71 Gastritis, unspecified, with bleeding; K20.91 Esophagitis, unspecified with bleeding; E10.65 Type 1 diabetes mellitus with hyperglycemia; R71.0 Precipitous drop in hematocrit
CPT/HCPCS: 36415; 80048; 80053; 80307; 81001; 82010; 82150; 82962; 83036; 83605; 83690; 83735; 85014; 85018; 85025; 85379; 87040; 87081; 96361; 96374; 96375; C9113; G0378; J1815; J2405; J3480; J3490